=== PATIENT | female | born 1965 | race Caucasian/White ===

== ENCOUNTER 2021-03-06 15:15 | Day surgery (SDC) | payer OTHER ==
[~2021-03-06] VITALS: Ht 172.7 cm; Wt 115.8 kg
[2021-03-06] MEDS ORDERED: MIDAZOLAM 1 MG/ML, 2ML ONE (15:51)
[2021-03-06] MEDS ORDERED: FENTANYL PF 250 MCG/5ML ONE (15:52)
[2021-03-06] MEDS ORDERED: CHLORHEXIDINE 15 ML UDC ONE (15:53)
[2021-03-06] MEDS ORDERED: VANCOMYCIN 1,000 MG ONE (15:54)
[2021-03-06 15:58] VITALS: BP 112/79
[2021-03-06] MEDS ORDERED: ASPI-963 PO (15:58)
[2021-03-06] MEDS ORDERED: oxycodone PO (15:58)
[2021-03-06] MEDS ORDERED: ATOR40TA PO (15:58)
[2021-03-06] MEDS ORDERED: PHEN100C PO (15:58)
[2021-03-06] MEDS ORDERED: CHLORHEXIDINE 15 ML UDC PO ONE (16:00)
[2021-03-06] MEDS ORDERED: CEFAZOLIN 1,000 MG ONE ×2 (16:09)
[2021-03-06] MEDS ORDERED: OXYcodone 5 MG/5 ML ORAL.SOL UDC PO PRN ×2 (16:30→17:30)
[2021-03-06] MEDS ORDERED: LACTATED RINGERS 1,000 ML IV SCH (16:30)
[2021-03-06] MEDS ORDERED: PROMETHAZINE 25 MG/ML, 1ML IVPush PRN (16:30)
[2021-03-06] MEDS ORDERED: hydrALAzine 20 MG/ML, 1ML IV PRN (16:30)
[2021-03-06] MEDS ORDERED: HYDROmorphone 1 MG/ML, 1ML INJ IVPush PRN (16:30)
[2021-03-06] MEDS ORDERED: ACETAMINOPHEN 325 MG TABLET PO PRN ×2 (16:30→17:30)
[2021-03-06] MEDS ORDERED: ONDANSETRON 2MG/ML, 2ML IVPush PRN ×2 (16:30→17:30)
[2021-03-06] MEDS ORDERED: LABETALOL 5MG/ML, 20ML IV PRN (16:30)
[2021-03-06] MEDS ORDERED: DEXAMETHASONE 4 MG/ML, 1ML ONE (16:31)
[2021-03-06] MEDS ORDERED: SUCCINYLCHOLINE 20 MG/ML, 10ML ONE (16:45)
[2021-03-06] MEDS ORDERED: PROPOFOL 10 MG/ML, 20ML ONE (16:45)
[2021-03-06] MEDS ORDERED: ONDANSETRON 2MG/ML, 2ML ONE ×2 (16:45→18:24)
[2021-03-06] MEDS ORDERED: FENTANYL PF 100 MCG/2ML ONE (17:23)
[2021-03-06] MEDS ORDERED: KETOROLAC 30 MG/1 ML ONE (17:23)
[2021-03-06] MEDS ORDERED: ACETAMINOPHEN 650 MG/20.3 ML UDC ONE (17:23)
[2021-03-06] MEDS ORDERED: OXYcodone 5 MG/5 ML ORAL.SOL UDC ONE (17:24)
[2021-03-06] MEDS: FENTANYL PF 100 MCG/2ML IV PRN ×2 (17:30→17:40)
[2021-03-06] MEDS ORDERED: HYDROmorphone 1 MG/ML, 1ML INJ IM PRN (17:30)
[2021-03-06] MEDS ORDERED: KETOROLAC 30 MG/1 ML IVPush SCH (17:30)
== END 2021-03-06 19:01 | disposition home or self-care (01) ==
LOC: OR 15:15
PROVIDERS: ATTEND Orthopaedic Surgery
DX: T81.31XA Disruption of external operation (surgical) wound, not elsewhere classified, initial encounter (principal); G40.909 Epilepsy, unspecified, not intractable, without status epilepticus; G47.33 Obstructive sleep apnea (adult) (pediatric); E66.9 Obesity, unspecified; Z79.899 Other long term (current) drug therapy; Z86.16 Personal history of COVID-19; Z88.8 Allergy status to other drugs, medicaments and biological substances; Z96.652 Presence of left artificial knee joint; Y83.8 Other surgical procedures as the cause of abnormal reaction of the patient, or of later complication, without mention of misadventure at the time of the procedure
CPT/HCPCS: 13160; 87070; 87075; 87077; 87186; 87205; J0330; J0690; J1100; J1885; J2250; J2405; J2704; J3010; J3370